=== PATIENT | female | born 1990 | race Caucasian/White ===

== ENCOUNTER 2024-08-31 17:33 | Emergency (ER) | payer OTHER, SELFPAY ==
[2024-08-31 17:52] VITALS: BP 116/79; PULSE 85; TEMP 36.7; O2SAT 99; BMI 32.3
--- NOTE | 2024-08-31 17:56 | ED.GENADUL1 ---
HPI HPI - General Adult General Chief complaint: Animal Bite Stated complaint: TICK BITE Time Seen by Provider: 08/31/24 17:34 Source: patient Mode of arrival: walk-in Limitations: no limitations History of Present Illness HPI narrative: Patient is a 34-year-old female who presents to the emergency department today for evaluation concerns for tick bite. She endorses she had a tick the back of her left upper leg that she subsequently removed today. She reports this was removed overall with ease. No pain, redness, or drainage to the site of the bite. No sick symptoms of fevers/chills or nausea/vomiting. She denies any significant medical or surgical history otherwise. Related Data Home Medications ?Medication ?Instructions ?Recorded ?Confirmed No Known Home Medications 08/31/24 08/31/24 Allergies Allergy/AdvReac Type Severity Reaction Status Date / Time No Known Drug Allergies Allergy Verified 08/31/24 17:55 Review of Systems ROS Status of ROS 10 or more systems reviewed and unremarkable except as noted in history and below PFSH PFSH Social History Little interest or pleasure in doing things: not at all Feeling down, depressed, or hopeless: not at all Exam Narrative Exam Narrative: Constituational: Awake/ alert, no apparent distress, well hydrated HENMT: normocephalic, external ears normal, moist oral mucous membranes and oropharynx normal Eyes: EOMI and conjunctivae normal Neck: ROM intact Chest: inspection of chest normal Respiratory: Normal respiratory effort, clear to auscultation bilaterally Cardio: regular rate and regular rhythm Back: nontender MSK: ROM intact, +NVI Skin: + Punctate area of dry skin to the posterior lateral aspect of the mid L upper leg without surrounding erythema, ecchymosis, or drainage. Neuro: no focal deficits Psych: mental status grossly normal Constitutional Vital Signs, click to edit/add: Last Vital Signs Temp 98.1 F 08/31/24 17:52 Pulse 85 08/31/24 17:52 Resp 18 08/31/24 17:52 BP 116/79 08/31/24 17:52 Pulse Ox 99 08/31/24 17:52 O2 Del Method Room Air 08/31/24 17:52 Course Vital Signs Vital signs: Vital Signs Temperature 98.1 F 08/31/24 17:52 Pulse Rate 85 08/31/24 17:52 Respiratory Rate 18 08/31/24 17:52 Blood Pressure 116/79 08/31/24 17:52 Pulse Oximetry 99 08/31/24 17:52 Oxygen Delivery Method Room Air 08/31/24 17:52 Temperature 98.1 F 08/31/24 17:52 Pulse Rate 85 08/31/24 17:52 Respiratory Rate 18 08/31/24 17:52 Blood Pressure 116/79 08/31/24 17:52 Pulse Oximetry 99 08/31/24 17:52 Oxygen Delivery Method Room Air 08/31/24 17:52 Medical Decision Making MDM Narrative Medical decision making narrative: Patient is a well-appearing 34-year-old female who presented to the emergency department today for evaluation following a tick bite to the left leg. Initial examination vital signs overall stable. Patient does have clinical evidence consistent with likely insect bite to posterior lateral mid aspect of the left upper leg. No evidence of infectious processes such as cellulitis or abscess. No target lesion present. Patient did receive prophylactic dose of doxycycline for tick bite. Discussed recommendations for follow-up with your primary care provider for reevaluation. Discussed signs and symptoms of any worsening condition and when to consider reevaluation by the emergency department. Patient verbalized an understanding of this and is agreeable with the plan to be discharged home. Medical Records Medical records reviewed: Yes I reviewed the patient's medical records Discharge Plan Discharge Chief Complaint: Animal Bite Clinical Impression: Tick bite Patient Disposition: Home, Self-Care Prescriptions / Home Meds: No Action No Known Home Medications Print Language: Bulgarian Instructions: Tick Bite (ED) Additional Instructions: May take Tylenol and ibuprofen as needed for any pain. He received a prophylactic dose of doxycycline here in the emergency department today for the tick bite. Follow-up with your primary care provider for reevaluation as discussed. Referrals: Physician,Non-Staff, MD [Primary Care Provider] - 1 week
[2024-08-31] MEDS: DOXYCYCLINE MONOHYDRATE 100 MG CAPSULE PO (18:04)
== END 2024-08-31 18:11 | disposition home or self-care (01) ==
PROVIDERS: Emergency Provider Emergency Medicine
DX: S70.362A Insect bite (nonvenomous), left thigh, initial encounter (principal); W57.XXXA Bitten or stung by nonvenomous insect and other nonvenomous arthropods, initial encounter
CPT/HCPCS: 99283